=== PATIENT | female | born 1960 | race Caucasian/White ===

== ENCOUNTER 2018-10-27 11:45 | Emergency (ER) | payer MEDICARE, MEDICAID ==
[2018-10-27] MEDS ORDERED: Ketorolac Tromethamine 30 MG/ML VIAL ONE (12:40)
== END 2018-10-27 12:53 | disposition home or self-care (01) ==
LOC: ERS 11:45
DX: M54.5 Low back pain (principal); G89.29 Other chronic pain; I10 Essential (primary) hypertension; F41.9 Anxiety disorder, unspecified; F32.9 Major depressive disorder, single episode, unspecified
CPT/HCPCS: 96372; J1885

== ENCOUNTER 2018-11-24 09:50 | Outpatient (CLI) | payer MEDICARE, MEDICAID ==
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
== END 2018-11-24 09:51 | disposition home or self-care (01) ==
LOC: BICMRI 09:50
PROVIDERS: ATTEND Family Medicine
DX: M54.5 Low back pain (principal); R15.9 Full incontinence of feces; M47.816 Spondylosis without myelopathy or radiculopathy, lumbar region; M48.061 Spinal stenosis, lumbar region without neurogenic claudication; Z98.1 Arthrodesis status
CPT/HCPCS: 72148

== ENCOUNTER 2018-12-02 20:03 | Emergency (ER) | payer MEDICARE, MEDICAID ==
[2018-12-02] MEDS ORDERED: Dexamethasone 4 mg/ml Vial ONE (20:26)
--- NOTE | 2018-12-02 20:56 | RAD ---
CHEST ONE VIEW: 12/02/18 HISTORY: Fever, allergic reaction, rash. FINDINGS: Heart size is normal. The lungs are clear. Lower cervical spine anterior cervical fusion changes. IMPRESSION: No significant acute intrathoracic disease. No other acute process. POS: RRE
== END 2018-12-02 21:17 | disposition home or self-care (01) ==
LOC: ERS 20:03
DX: T78.40XA Allergy, unspecified, initial encounter (principal); R50.9 Fever, unspecified; I10 Essential (primary) hypertension; F41.9 Anxiety disorder, unspecified; F32.9 Major depressive disorder, single episode, unspecified
CPT/HCPCS: 71045; 96372; J1100